=== PATIENT | male | born 1940 | race Caucasian/White ===

== ENCOUNTER 2020-11-25 05:23 | Emergency (ER) | payer MEDICARE ==
[~2020-11-25] VITALS: Ht 172.7 cm; Wt 61.5 kg
[2020-11-25 06:01] LABS: BASOPHILS % (AUTO) 1 % (0-1); EOSINOPHILS % (AUTO) 2 % (1-7); LYMPHOCYTES % (AUTO) 4 % (22-44); MEAN CORPUSCULAR HEMOGLOBIN 29.9 pg (27.5-34.5); MEAN CORPUSCULAR HGB CONC 33.6 g/dL (33.2-36.2); MEAN PLATELET VOLUME 7.5 fL (7.4-10.4); MONOCYTES % (AUTO) 3 % (2-9); NEUTROPHILS % (AUTO) 91 % (42-75); PLATELET COUNT 372 x10^3/uL (130-400); RED BLOOD COUNT 4.89 x10^6/uL (4.38-5.82); RED CELL DISTRIBUTION WIDTH 15.2 % (9.4-14.8)
[2020-11-25 06:05] LABS: ALBUMIN 3.8 g/dL (3.4-5.0); ANION GAP 6 mmol/L (5-15); CHLORIDE 106 mmol/L (98-107)
--- NOTE | 2020-11-25 06:08 | NUR ---
PT HAS A TRACH WITH A MASS IN THROAT. PT WAS SELF SUCTIONING AT HOME TODAY AND SCRATCHED HIS THROAT PER EMS. PT ALSO DILODGED HIS TRACH. PT A/O X4 WITH PT ON BLOW BY TRACH O2. PT HAS UNLABORED BREATHING. PT COMUNICATES WITH PEN AND PAPER.
[2020-11-25 06:10] LABS: ALANINE AMINOTRANSFERASE 19 U/L (12-78); ALKALINE PHOSPHATASE 105 U/L (45-117); BILIRUBIN,TOTAL 0.7 mg/dL (0.2-1.0); CREATININE 0.96 mg/dL (0.7-1.3); TOTAL PROTEIN 7.8 g/dL (6.4-8.2)
[2020-11-25 06:35] LABS: MD SCAN
--- NOTE | 2020-11-25 06:59 | NUR ---
REPORT FROM [facility]. PT TO CT
--- NOTE | 2020-11-25 07:00 | NUR ---
report to tanna martínez
[2020-11-25] MEDS ORDERED: OMNIPAQUE 350 MG/ML, 100ML BOTTLE ONE (07:04)
--- NOTE | 2020-11-25 07:26 | NUR ---
PT SITTING ON ALEXI, NAD/VSS. CALL LIGHT WITHIN REACH
--- NOTE | 2020-11-25 08:41 | NUR ---
PT CALMLY SITTING ON GURNEY, NADN/VSS. PT ABLE TO COMMUNICATE THROUGH CLIPBOARD. COMFORT MEASURES PROVIDED. CALL LIGHT WITHIN REACH
--- NOTE | 2020-11-25 09:54 | NUR ---
PT SITTING ON GURNEY, ABLE TO COMMUNICATE WITH CLIPBOARD. MOUTH SWABS PROVIDED. PT GIVEN 240ML WATER THROUGH GASTRIC TUBE. NADN/VSS. CALL LIGHT WITHIN REACH
--- NOTE | 2020-11-25 11:22 | NUR ---
PT SITTING ON MICHELLE TRUONGN/VSS. COMFORT MEASURES PROVIDED. TALKED TO PTS SISTER, SHE IS ON HER WAY TO [employer] PT
--- NOTE | 2020-11-25 11:41 | NUR ---
PT IS FROM [place]. PT'S SISTER IS COMING TO PICK PT UP TO RETURN HOME.
--- NOTE | 2020-11-25 12:17 | NUR ---
PT LAYING ON GURNEY, WATCHING TV. AT BS. NADN/VSS. NO NEEDS AT THIS TIME. CALL LIGHT WITHIN REACH
--- NOTE | 2020-11-25 12:24 | NUR ---
PT SITTING IN CHAIR AT BS AWAITING DAUGHTER FOR AMBULANCE OFFICER, MEDICAL OFFICE COORDINATOR/ERP AWARE. PT TRACH SUCTIONED PER ERP OK, PT TOLERATED WELL, AIRWAY CLEARED OF MUCUS & BREATHING MORE COMFORTABLY. NO FURTHER NEEDS AT THIS TIME, CALL LIGHT WITHIN REACH. Addendum: 11/25/20 at 1252 by TRACE PT SITTING IN CHAIR AT BS AWAITING SISTER FOR AMBULANCE OFFICER, MEDICAL OFFICE COORDINATOR/ERP AWARE. PT TRACH SUCTIONED PER ERP OK, PT TOLERATED WELL, AIRWAY CLEARED OF MUCUS & BREATHING MORE COMFORTABLY. NO FURTHER NEEDS AT THIS TIME, CALL LIGHT WITHIN REACH.
--- NOTE | 2020-11-25 13:38 | NUR ---
RT AT BS
--- NOTE | 2020-11-25 13:48 | NUR ---
PT SITTING IN CHAIR, SISTER AT BS. JOHANNY. CALL LIGHT WITHIN REACH. NO NEEDS AT THIS TIME
[2020-11-25 14:32] VITALS: BP 112/78
--- NOTE | 2020-11-25 14:50 | NUR ---
Patient & sister given thorough trach care/suctioning education by RT & RN along with ED discharge instructions and they have confirmed that they understand the instructions. Patient ambulatory with steady gait.
== END 2020-11-25 14:52 | disposition home or self-care (01) ==
LOC: ED 07:54
DX: J95.09 Other tracheostomy complication (principal); R06.00 Dyspnea, unspecified; I10 Essential (primary) hypertension; Z87.891 Personal history of nicotine dependence; Z85.21 Personal history of malignant neoplasm of larynx
CPT/HCPCS: 36415; 70491; 71045; 71260; 80053; 85025; 99285; Q9967

== ENCOUNTER 2020-12-21 13:03 | Emergency (ER) | payer MEDICARE ==
[~2020-12-21] VITALS: Ht 172.7 cm; Wt 57.2 kg
[2020-12-21 13:17] VITALS: BP 91/67
--- NOTE | 2020-12-21 13:29 | NUR ---
PT CHANGED INTO GOWN, MONITORS IN PLACE. SISTER AT BS. CALL LIGHT WITHIN REACH
--- NOTE | 2020-12-21 14:02 | NUR ---
TASK RN: RT NOTIFIED TO SEE PT.
--- NOTE | 2020-12-21 14:12 | NUR ---
RT AT BS
--- NOTE | 2020-12-21 14:25 | NUR ---
Patient given discharge instructions and they have confirmed that they understand the instructions. Patient ambulatory with steady gait.
== END 2020-12-21 14:27 | disposition home or self-care (01) ==
LOC: ED 14:15
DX: Z43.0 Encounter for attention to tracheostomy (principal); R07.9 Chest pain, unspecified; I10 Essential (primary) hypertension; Z87.891 Personal history of nicotine dependence; Z85.818 Personal history of malignant neoplasm of other sites of lip, oral cavity, and pharynx
CPT/HCPCS: 71045; 99283